=== PATIENT | male | born 2000 | race Caucasian/White ===

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

== ENCOUNTER 2021-05-07 05:42 | Emergency (ER) | payer SELFPAY ==
[~2021-05-07] VITALS: Ht 182.9 cm; Wt 75.0 kg
[2021-05-07 05:48] VITALS: BP 148/83
--- NOTE | 2021-05-07 06:13 | PHYS DOC ---
Past History Past Medical History: Other Past Surgical History: No Surgical History Smoking: Cigarettes, Less than 1pk/day Additional Smoking Information: vape Alcohol Use: Occasionally Drug Use: None General Adult EDM: Chief Complaint: SHORTNESS OF BREATH HPI: HPI: 21-year-old male presents emergency room with neck pain. The patient states that he was sleeping and when he woke up he had pain in the right side of his neck. It was difficult to turn his head. He states that his neck just feels really tight. Patient admits to having a history of "myself when I am asleep". Patient denies any known trauma or falls. He has not been feeling ill in any other way. No fever or chills at home. Review of Systems: Review of Systems: Constitutional: Denies fever or chills Eyes: Denies change in visual acuity HENT: Neck pain Respiratory: Denies cough or shortness of breath Cardiovascular: Denies chest pain or edema GI: Denies abdominal pain, nausea, vomiting, bloody stools or diarrhea : Denies dysuria Musculoskeletal: Denies back pain or joint pain Integument: Denies rash Neurologic: Denies headache, focal weakness or sensory changes Endocrine: Denies polyuria or polydipsia Lymphatic: Denies swollen glands Psychiatric: Denies depression or anxiety Allergies: Allergies: Allergies Coded Allergies Type Severity Reaction Last Updated Verified No Known Drug Allergies 05/07/21 No Physical Exam: PE: Constitutional: Well developed, well nourished, no acute distress, non-toxic a ppearance. [] HENT: Normocephalic, atraumatic, bilateral external ears normal, oropharynx moist, no oral exudates, nose normal. [] Eyes: PERRLA, EOMI, conjunctiva normal, no discharge. [] Neck: Decreased range of motion due to pain, no tenderness to palpation, supple, no stridor. No obvious trauma or lymph nodes. [] Cardiovascular: Heart rate regular rhythm, no murmur [] Lungs & Thorax: Bilateral breath sounds clear to auscultation [] Abdomen: Bowel sounds normal, soft, no tenderness, no masses, no pulsatile masses. [] Skin: Warm, dry, no erythema, no rash. [] Back: No tenderness, no CVA tenderness. [] Extremities: No tenderness, no cyanosis, no clubbing, ROM intact, no edema. [] Neurologic: Alert and oriented X 3, normal motor function, normal sensory function, no focal deficits noted. [] Psychologic: Affect normal, judgement normal, mood normal. [] Current Patient Data: Vital Signs: Vital Signs Date Time Temp Pulse Resp B/P (MAP) Pulse Ox O2 Delivery O2 Flow Rate FiO2 05/07/21 05:48 70 18 148/83 97 Room Air EKG: EKG: [] Radiology/Procedures: Radiology/Procedures: [] Impressions: Study: XR CERVICAL SPINE 2-3V Indication: Neck pain. Comparison: None. Findings: Maintained vertebral body and disc space height. Straightening of cervical lordosis. No listhesis. Unremarkable atlantodental interval and C1-C2 lateral mass articulation. The dens is intact. No significant spondylosis. Normal thickness of the prevertebral soft tissues. Unremarkable lung apices. Impression: No osseous abnormality is identified to explain the patient's neck pain. Electronically signed by: SUSANA CALLOWAY MD (05/07/2021 6:59 AM) [facility] DICTATED AND SIGNED BY: SUSANA CALLOWAY MD DATE: 05/07/2158 CC: CHAPITO MALIK DO; MARINA LEDESMA ~MTH0 0 Study: XR CHEST 1V Indication: Shortness of breath. Comparison: None. Findings: The cardiomediastinal silhouette and joaquim are within normal limits. No localized airspace opacity, pleural effusion or pneumothorax. Impression: No acute radiographic abnormality of the chest. Electronically signed by: SUSANA CALLOWAY MD (05/07/2021 6:32 AM) [facility] DICTATED AND SIGNED BY: SUSANA CALLOWAY MD DATE: 05/07/21631 CC: CHAPITO MALIK DO; JUVE COYLE MD ~MTH0 0 Heart Score: C/O Chest Pain: N/A Risk Factors: Risk Factors: DM, Current or recent (<one month) smoker, HTN, HLP, family history of CAD, obesity. Risk Scores: Score 0 - 3: 2.5% MACE over next 6 weeks - Discharge Home Score 4 - 6: 20.3% MACE over next 6 weeks - Admit for Clinical Observation Score 7 - 10: 72.7% MACE over next 6 weeks - Early Invasive Strategies Course & Med Decision Making: Course & Med Decision Making Pertinent Labs and Imaging studies reviewed. (See chart for details) Based on the patient's symptoms, this is likely just a musculoskeletal strain. X-ray of the cervical spine and chest are negative for acute findings. His labs are unremarkable. The patient is stable for discharge at this time. [] Dragon Disclaimer: Dragon Disclaimer: This electronic medical record was generated, in whole or in part, using a voice recognition dictation system. Departure Departure: Impression: Primary Impression: Cervical strain, acute Qualified Codes: S16.1XXA - Strain of muscle, fascia and tendon at neck level, initial encounter Disposition: HOME / SELF CARE / HOMELESS Condition: STABLE Referrals: JUVE COYLE MD (PCP) Patient Instructions: Cervical Strain and Sprain with [facility] CHAPITO MALIK DO May 07, 2021 06:13
--- NOTE | 2021-05-07 06:35 | RAD ---
Study: XR CHEST 1V Indication: Shortness of breath. Comparison: None. Findings: The cardiomediastinal silhouette and joaquim are within normal limits. No localized airspace opacity, pl eural effusion or pneumothorax. Impression: No acute radiographic abnormality of the chest. Electronically signed by: SUSANA CALLOWAY MD (05/07/2021 6:32 AM) [facility]
--- NOTE | 2021-05-07 07:01 | RAD ---
Study: XR CERVICAL SPINE 2-3V Indication: Neck pain. Comparison: None. Findings: Maintained vertebral body and disc space height. Straightening of cervical lordosis. No listhesis. Un remarkable atlantodental interval and C1-C2 lateral mass articulation. The dens is intact. No significant spondylosis. Normal thickness of the prevertebral soft tissues. Unremarkable lung apic es. Impression: No osseous abnormality is identified to explain the patient's neck pain. Electronically signed by: SUSANA CALLOWAY MD (05/07/2021 6:59 AM) [facility]
[2021-05-07 07:18] LABS: BASO % 1 % (0-3); EOS % 1 % (0-3); HEMATOCRIT 42.7 % (39.0-53.0); HEMOGLOBIN 14.6 g/dL (13.0-17.5); LYMPH # 1.7 x10^3/uL (1.0-4.8); LYMPH % 47 % (24-48); MEAN CORPUSCULAR HEMOGLOBIN 30 pg (25-35); MEAN CORPUSCULAR HGB CONC 34 g/dL (31-37); MEAN CORPUSCULAR VOLUME 87 fL (79-100); MONO # 0.4 x10^3/uL (0.0-1.1); MONO % 11 % (0-9); NEUT # 1.5 x10^3uL (1.8-7.7); NEUT % 41 % (31-73); PLATELET COUNT 171 x10^3/uL (140-400); RED BLOOD COUNT 4.89 x10^6/uL (4.30-5.70); RED CELL DISTRIBUTION WIDTH 12.9 % (11.5-14.5); WHITE BLOOD COUNT 3.6 x10^3/uL (4.0-11.0)
[2021-05-07 07:28] LABS: CALCIUM 8.2 mg/dL (8.5-10.1); CREATININE 0.8 mg/dL (0.7-1.3); POTASSIUM 3.7 mmol/L (3.5-5.1)
[2021-05-07 07:34] LABS: ALBUMIN 4.2 g/dL (3.4-5.0); ALBUMIN/GLOBULIN RATIO 1.8 (1.0-1.7); TOTAL BILIRUBIN 0.6 mg/dL (0.2-1.0); TOTAL PROTEIN 6.6 g/dL (6.4-8.2)
== END 2021-05-07 07:40 | disposition home or self-care (01) ==
LOC: ER 05:42
DX: S16.1XXA Strain of muscle, fascia and tendon at neck level, initial encounter (principal); F17.200 Nicotine dependence, unspecified, uncomplicated; X50.9XXA Other and unspecified overexertion or strenuous movements or postures, initial encounter; Y93.89 Activity, other specified; Y92.89 Other specified places as the place of occurrence of the external cause; Y99.8 Other external cause status
CPT/HCPCS: 36415; 71045; 72040; 80053; 85025; 99284